=== PATIENT | male | born 1985 | race Caucasian/White ===

== ENCOUNTER 2022-01-11 02:07 | Emergency (ER) | payer OTHER ==
[~2022-01-11] VITALS: Ht 180.3 cm; Wt 72.6 kg
--- NOTE | 2022-01-11 02:07 | NUR ---
PT BIB [facility]P TAKEN TO CHAIR
[2022-01-11 02:11] VITALS: BP 152/81
--- NOTE | 2022-01-11 02:18 | NUR ---
DR CEDENO EXAMINING PT
--- NOTE | 2022-01-11 02:31 | NUR ---
Patient discharged with v/s stable. Written and verbal after care instructions given and explained. Patient verbalized understanding. Ambulatory with in custody. All questions addressed prior to discharge. Advised to follow up with PMD.
== END 2022-01-11 02:31 ==
LOC: MED 02:07
DX: V49.88XA Car occupant (driver) (passenger) injured in other specified transport accidents, initial encounter; Y93.89 Activity, other specified; Y92.89 Other specified places as the place of occurrence of the external cause; Y99.8 Other external cause status
CPT/HCPCS: 99283